=== PATIENT | male | born 1935 | race Caucasian/White ===

== ENCOUNTER 2024-03-11 08:53 | Day surgery (SDC) | payer MEDICARE, OTHER ==
[2024-03-11] MEDS: Proparacaine 0.5% Ophth Soln 15 ML Bottle EYERT ONE ×3 (07:06→09:50)
[2024-03-11] MEDS: Povidone-Iodine 5% Sterile Ophth Soln 30 ML Bottle EYERT ONE ×3 (07:09→09:52)
[2024-03-11] MEDS: Lidocaine 1% 30 ML SDV ONE ×3 (07:09→10:08)
[2024-03-11] MEDS: Vancomycin 500 MG SDV EYERT ONE ×3 (07:10→10:09)
[2024-03-11] MEDS: Apraclonidine 0.5% Ophth Soln 5 ML Bot EYERT ONE ×2 (07:11→10:10)
[2024-03-11] MEDS: Diclofenac Sodium 0.1% Ophth Soln 5 ML Bottle EYERT ONE ×2 (07:12→10:10)
[2024-03-11] MEDS: Dexamethasone/Neomycin/Polymyxin B Ophth Oint 3.5 GM Tube EYERT ONE ×2 (07:13→10:10)
[2024-03-11] MEDS ORDERED: Acetaminophen/Codeine 300-30 MG Tab PO PRN (09:15)
[2024-03-11] MEDS ORDERED: Acetaminophen 325 MG Tab PO PRN (09:15)
[2024-03-11] MEDS ORDERED: Ondansetron 4 MG/2 ML SDV IVPUSH PRN (09:15)
[2024-03-11] MEDS: Moxifloxacin 0.5% Ophth Soln 3 ML Bottle EYERT ONE (09:30)
[2024-03-11] MEDS: Phenylephrine 10% Ophth Soln 5 ML Bot EYERT ONE (09:33)
[2024-03-11] MEDS: Tropicamide 1% Ophth Soln 15 ML Bottle EYERT ONE (09:33)
[2024-03-11] MEDS: Cataract Ophth Solution EYERT ONE (09:34)
[2024-03-11] MEDS: Timolol Maleate 0.5% Ophth Soln 5 ML Bottle EYERT ONE (09:34)
[2024-03-11] MEDS: Sodium Chloride 0.9% 10 ML Syringe FLUSH PRN (09:35)
[2024-03-11] MEDS: Dexamethasone 4 MG/ML SDV ONE (10:03)
== END 2024-03-11 10:58 | disposition home or self-care (01) ==
LOC: DL.SDS 08:53
PROVIDERS: ATTEND Ophthalmology
DX: E11.36 Type 2 diabetes mellitus with diabetic cataract (principal); H25.811 Combined forms of age-related cataract, right eye; I10 Essential (primary) hypertension; E78.5 Hyperlipidemia, unspecified; N40.0 Benign prostatic hyperplasia without lower urinary tract symptoms; Z79.84 Long term (current) use of oral hypoglycemic drugs; Z79.899 Other long term (current) drug therapy
CPT/HCPCS: A9270-GY; J1100; J3370; J3490; V2632